=== PATIENT | female | born 1985 | race Hispanic/Latino ===

== ENCOUNTER 2016-07-12 12:30 | Emergency (ER) | payer MEDICAID ==
[2016-07-12 12:31] VITALS: BMI 30.4
[2016-07-12 12:47] VITALS: TEMP 98.2
--- NOTE | 2016-07-12 14:00 | RAD ---
HISTORY: R/O TB COMPARISON: 12/28/2015 TECHNIQUE: Chest PA and lateral FINDINGS: LUNGS: No active pulmonary disease. PLEURA: No significant pleural effusion identified. No pneumothorax apparent. CARDIOVASCULAR: Normal. OSSEOUS STRUCTURES: No significant abnormalities. VISUALIZED UPPER ABDOMEN: Normal. OTHER FINDINGS: None. IMPRESSION: No active disease.
[2016-07-12] MEDS ORDERED: Sodium Chloride 0.9% 1,000 ML IV ONE (14:27)
[2016-07-12] MEDS ORDERED: Albuterol-Ipratrop 3 mg / 0.5 (3 ml) UD IH STA ×2 (14:29→15:30)
[2016-07-12] MEDS ORDERED: Albuterol-Ipratrop 3 mg / 0.5 (3 ml) UD ONE (14:39)
[2016-07-12] MEDS ORDERED: Sodium Chloride 0.9% 1,000 ML ONE (14:39)
[2016-07-12 14:58] LABS: BASO # 0.1 K/uL (0.0-0.2); BASO % 0.7 % (0.0-2.0); EOS # 0.1 K/uL (0.0-0.7); EOS % 0.8 % (0.0-4.0); HEMATOCRIT 35.7 % (34.0-47.0); LYMPH # 3.3 K/uL (1.0-4.3); LYMPH % 46.8 % (20.0-40.0); MEAN CELL VOLUME 80.2 fL (81.0-99.0); MEAN CORPUSCULAR HEMOGLOBIN 25.3 pg (27.0-31.0); MEAN CORPUSCULAR HGB CONC 31.6 g/dL (33.0-37.0); MEAN PLATELET VOLUME 8.9 fL (7.2-11.7); MONO # 0.4 K/uL (0.0-0.8); RED CELL DISTRIBUTION WIDTH 16.3 % (11.5-14.5)
[2016-07-12 15:04] LABS: RBC URINE 1 /hpf (0-3); URINE BACTERIA RARE (<OCC); URINE BILIRUBIN NEGATIVE (NEGATIVE); URINE BLOOD NEGATIVE (NEGATIVE); URINE COLOR Yellow (YELLOW); URINE GLUCOSE (UA) NORMAL (Normal); URINE KETONE NEGATIVE (NEGATIVE); URINE LEUKOCYTE ESTERASE NEG Leu/uL (Negative); URINE PROTEIN NEGATIVE (NEGATIVE); URINE UROBILINOGEN NORMAL mg/dL (0.2-1.0); WBC URINE 1 /hpf (0-5)
[2016-07-12 15:09] LABS: CHLORIDE 102 mmol/L (98-107)
[2016-07-12 15:10] LABS: POTASSIUM 3.9 mmol/L (3.6-5.2); SODIUM 138 mmol/L (132-148)
[2016-07-12 15:12] LABS: ALB/GLOB RATIO 1.4 (1.0-2.1); AST/SGOT 16 U/L (14-36); BILIRUBIN,TOTAL 0.2 mg/dL (0.2-1.3); BLOOD UREA NITROGEN 14 mg/dL (7-17); CARBON DIOXIDE 26 mmol/L (22-30); GFR AFRICAN-AMERICAN > 60; TOTAL PROTEIN 6.7 g/dL (6.3-8.3)
[2016-07-12 15:13] LABS: ALKALINE PHOSPHATASE 44 U/L (38-126); ALT/SGPT 18 U/L (9-52); CALCIUM 8.7 mg/dl (8.6-10.4); GLUCOSE,RANDOM 79 mg/dL (65-105)
[2016-07-12 16:11] VITALS: RESP 20
--- NOTE | 2016-07-12 16:34 | CT ---
PROCEDURE: CT HEAD WITHOUT CONTRAST. HISTORY: Headaches COMPARISON: None available. TECHNIQUE: Axial computed tomography images were obtained through the head/brain without intravenous contrast. Radiation dose: Total exam DLP = 715.93 mGy-cm. This CT exam was performed using one or more of the following dose reduction techniques: Automated exposure control, adjustment of the mA and/or kV according to patient size, and/or use of iterative reconstruction technique. FINDINGS: HEMORRHAGE: No intracranial hemorrhage. BRAIN: No mass effect or edema. No atrophy or chronic microvascular ischemic changes. VENTRICLES: Unremarkable. No hydrocephalus. CALVARIUM: Unremarkable. PARANASAL SINUSES: Unremarkable as visualized. No significant inflammatory changes. MASTOID AIR CELLS: Unremarkable as visualized. No inflammatory changes. OTHER FINDINGS: None. IMPRESSION: Normal CT of the Head. No intracranial mass, hemorrhage or evidence of acute infarct.
--- NOTE | 2016-07-12 16:57 | C.PDOC ---
Time Seen by Provider: 07/12/16 14:19 Chief Complaint (Nursing): Flu-like Symptoms History Per: Patient Onset/Duration Of Symptoms: Days (about 1 week) Current Symptoms Are (Timing): Still Present Associated Symptoms: Sore Throat, Cough, Sputum, Nasal Congestion, Nausea, Vomiting Severity: Moderate Additional History Per: Prior Records Past Medical History Reviewed: Historical Data, Nursing Documentation, Vital Signs Vital Signs: Last Vital Signs Temp 98.2 F 07/12/16 12:46 Pulse 74 07/12/16 16:11 Resp 20 07/12/16 16:11 BP 110/72 07/12/16 16:11 Pulse Ox 98 07/12/16 16:11 - Medical History PMH: Anemia, Anxiety, Asthma (never hospitalized), Bipolar Disorder, Depression , Gall Bladder Disease, Post Traumatic Stress Disorder Surgical History: Cholecystectomy (6 years ago) - [facility] Procedures BUNIONECT/SFT/OSTEOTOMY (11/30/13) INJECT STEROID (04/09/14) LIMB LENGTHENING PROCEDURES, TARSALS & METATARSALS (04/09/14) OTH BUNIONECT W SFT FLY (04/09/14) REPAIR OF HAMMER TOE (11/30/13) Family History: States: Unknown Family Hx - Social History Hx Tobacco Use: Yes Hx Alcohol Use: No Hx Substance Use: Yes - Immunization History Hx Tetanus Toxoid Vaccination: No Hx Influenza Vaccination: No Hx Pneumococcal Vaccination: No Review Of Systems Except As Marked, All Systems Reviewed And Found Negative. Constitutional: Positive for: Malaise ENT: Positive for: Nose Congestion, Throat Pain Cardiovascular: Negative for: Chest Pain Respiratory: Positive for: Cough, Shortness of Breath, Wheezing Gastrointestinal: Negative for: Abdominal Pain Musculoskeletal: Negative for: Neck Pain, Back Pain Skin: Negative for: Rash Neurological: Positive for: Headache. Negative for: Weakness, Numbness, Seizures, Altered Mental Status Physical Exam - Physical Exam Appears: Non-toxic, No Acute Distress Skin: Normal Color, Warm, Dry, No Rash Head: Atraumatic, Normacephalic Eye(s): bilateral: PERRL, EOMI Ear(s): Bilateral: Normal Throat: Erythema, No Exudate, No Drooling, No Mass Neck: Normal ROM, Supple Cardiovascular: Rhythm Regular Respiratory: No Accessory Muscle Use, Wheezing Gastrointestinal/Abdominal: Soft, No Tenderness Back: No CVA Tenderness Extremity: Normal ROM Neurological/Psych: Oriented x3, Normal Motor, Normal Sensation ED Course And Treatment - Laboratory Results Result Diagrams: 07/12/16 14:52 07/12/16 14:52 Lab Interpretation: No Acute Changes Urine POC: Negative O2 Sat by Pulse Oximetry: 98 Pulse Ox Interpretation: Normal - Radiology CXR: Viewed By Me, Read By Radiologist CXR Interpretation: Yes: No Acute Disease - CT Scan/US CT head Other Rad Studies (CT/US): Read By Radiologist, Radiology Report Reviewed CT/US Interpretation: IMPRESSION: Normal CT of the Head. No intracranial mass , hemorrhage or evidence of acute infarct. Progress Note: Pt feels much better and wants to go home. Lungs clear. Reassessment Condition: Improved Progress - Interventions Interventions:: Observation, Intravenous fluid - Medications Administered Inhaled nebulized: Anticholinergic, Beta-2 agonist Intravenous: Corticosteroid, NSAID - Data Reviewed Data Reviewed: Lab, Diagnostic imaging, Old records - Patient Status Patient status: Mostly improved - Critical Care Citical Care: Excluding Proc Time Critical Care Time: 45 minutes - Continuity of Care Discussed patient case with:: Patient, ED Nurse - Patient Plan Patient Plan: Discharge, F/U with PCP, Continue present meds Disposition Counseled Patient/Family Regarding: Studies Performed, Diagnosis, Need For Followup, Rx Given, Smoking Cessation - Disposition Referrals: Kayce Gomez MD [Staff Provider] - Disposition: HOME/ ROUTINE Disposition Time: 17:00 Condition: IMPROVED Additional Instructions: Drink plenty of fluids. Follow up with your doctor. Return to the ER if you develop fever, not tolerating fluids, worsening of symptoms or if you have any other concerns. Prescriptions: Albuterol HFA [Ventolin HFA 90 mcg/actuation (8 g)] 2 puff IH Q4 PRN #1 unit PRN Reason: Wheezing Azithromycin [Zithromax] 1 dose PO DAILY #1 pkt predniSONE [predniSONE Tab] 40 mg PO DAILY #10 tab Instructions: Acute Bronchitis (ED) Print Language: NIGERIEN - Clinical Impression Clinical Impression: Influenza-like illness, Asthma exacerbation, Bronchitis
[2016-07-12 17:25] VITALS: BP 119/84; PULSE 63; O2SAT 99
== END 2016-07-12 17:45 | disposition home or self-care (01) ==
LOC: C.ER 12:30
DX: J11.1 Influenza due to unidentified influenza virus with other respiratory manifestations (principal); J45.901 Unspecified asthma with (acute) exacerbation
CPT/HCPCS: 70450; 71020; 80053; 81001; 84703; 85025; 87804; 94640; 96361; 96374; 96375; 99284; J1885; J2405; J2930; J7040

== ENCOUNTER 2016-07-23 18:57 | Emergency (ER) | payer MEDICAID ==
[2016-07-23 19:00] VITALS: BMI 32.5
--- NOTE | 2016-07-23 20:36 | C.PDOC ---
History Of Present Illness Patient presents to the ED with complaints of a severe migraine headache, nausea , and mild photophobia beginning a couple hours prior to arrival. Patient notes migraines of this severity are usual, symptoms similiar to previous migraines, and had a CT scan on 07/12/2016. Patient denies any other complaints at this time. Time Seen by Provider: 07/23/16 19:29 Chief Complaint (Nursing): Headache History Per: Patient History/Exam Limitations: no limitations Onset/Duration Of Symptoms: Hrs Current Symptoms Are (Timing): Still Present Severity: Moderate Pain Scale Rating Of: 5 Quality: Tightness, "Pain" Preceeding Symptoms: None Associated Symptoms: Photophobia (mild) Recent travel outside of the [place]: No Additional History Per: Patient Past Medical History Reviewed: Historical Data, Nursing Documentation, Vital Signs Vital Signs: Last Vital Signs Temp 97.5 F L 07/23/16 19:01 Pulse 60 07/23/16 20:55 Resp 18 07/23/16 20:55 BP 132/78 07/23/16 20:55 Pulse Ox 100 07/23/16 21:05 - Medical History PMH: Anemia, Anxiety, Asthma (never hospitalized), Bipolar Disorder, Depression , Gall Bladder Disease, Post Traumatic Stress Disorder Surgical History: Cholecystectomy (6 years ago) - [facility] Procedures BUNIONECT/SFT/OSTEOTOMY (11/30/13) INJECT STEROID (04/09/14) LIMB LENGTHENING PROCEDURES, TARSALS & METATARSALS (04/09/14) OTH BUNIONECT W SFT FLY (04/09/14) REPAIR OF HAMMER TOE (11/30/13) Family History: States: Unknown Family Hx - Social History Hx Tobacco Use: Yes Hx Alcohol Use: No Hx Substance Use: Yes - Immunization History Hx Tetanus Toxoid Vaccination: No Hx Influenza Vaccination: No Hx Pneumococcal Vaccination: No Review Of Systems Constitutional: Negative for: Fever, Chills, Sweats Eyes: Positive for: Pain. Negative for: Redness ENT: Negative for: Throat Pain Cardiovascular: Negative for: Chest Pain Respiratory: Negative for: Shortness of Breath Gastrointestinal: Positive for: Nausea. Negative for: Vomiting, Abdominal Pain , Diarrhea Genitourinary: Negative for: Dysuria Musculoskeletal: Negative for: Neck Pain Skin: Negative for: Rash, Lesions, Jaundice Neurological: Positive for: Headache. Negative for: Weakness Psych: Negative for: Anxiety Physical Exam - Physical Exam Appears: Non-toxic Skin: Warm, Dry Head: Atraumatic Eye(s): bilateral: Normal Inspection, PERRL, EOMI Oral Mucosa: Moist Neck: Supple Chest: Symmetrical Cardiovascular: Rhythm Regular Respiratory: No Accessory Muscle Use, No Rales, No Rhonchi, No Stridor Gastrointestinal/Abdominal: Soft, No Tenderness, No Distention, No Guarding, No Rebound Back: Normal Inspection Extremity: Normal ROM, No Tenderness Extremity: Bilateral: Atraumatic, Normal Color And Temperature Neurological/Psych: Oriented x3, Normal Speech, Normal Cognition, Normal Motor Gait: Steady ED Course And Treatment O2 Sat by Pulse Oximetry: 100 Pulse Ox Interpretation: Normal Reevaluation Time: 22:20 Reassessment Condition: Improved Medical Decision Making Medical Decision Making: Upon provider reevaluation patient is feeling better, is medically stable, and requires no further treatment in the ED at this time. Patient will be discharged home with zofran. Counseling was provided and all questions were answered regarding diagnosis and need for follow up with gautam. There is agreement to discharge plan. Return if symptoms persist or worsen. Disposition Counseled Patient/Family Regarding: Studies Performed, Diagnosis - Disposition Referrals: Kayce Gomez MD [Staff Provider] - Disposition: HOME/ ROUTINE Disposition Time: 20:36 Condition: FAIR Prescriptions: Ondansetron ODT [Zofran ODT] 1 odt PO BID PRN #10 odt PRN Reason: Nausea/Vomiting Instructions: Acute Headache (DC) - Clinical Impression Clinical Impression: Migraine - Scribe Statement The provider has reviewed the documentation as recorded by the Scribjon Santana All medical record entries made by the Luis Danielibjon were at my direction and personally dictated by me. I have reviewed the chart and agree that the record accurately reflects my personal performance of the history, physical exam, medical decision making, and the department course for this patient. I have also personally directed, reviewed, and agree with the discharge instructions and disposition.
[2016-07-23] MEDS ORDERED: DiphenhydrAMINE 50 mg/ml Inj IVP STA (20:39)
[2016-07-23] MEDS ORDERED: DiphenhydrAMINE 50 mg/ml Inj ONE (20:47)
[2016-07-23 22:41] VITALS: BP 122/71; PULSE 80; RESP 16; TEMP 97.6; O2SAT 99
== END 2016-07-23 22:40 | disposition home or self-care (01) ==
LOC: C.ER 18:57
DX: G43.909 Migraine, unspecified, not intractable, without status migrainosus (principal)
CPT/HCPCS: 96374; 96375; 99285; J1170; J1200; J2405; J2930

== ENCOUNTER 2016-09-11 11:00 | Emergency (ER) | payer MEDICAID ==
[2016-09-11 11:01] VITALS: BMI 32.5
--- NOTE | 2016-09-11 11:20 | C.PDOC ---
History Of Present Illness 31 yr old female presents to the ER stating while asleep this morning she fell of the bed and hit her right collar bone and right side of neck on the night stand. Now complains of pain to right collar bone and right neck. Denies LOC, vision changes, nausea, vomiting, dizziness, headache, weakness or numbness. 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) Past Medical History Reviewed: Historical Data, Nursing Documentation, Vital Signs Vital Signs: Last Vital Signs Temp 98.4 F 09/11/16 12:27 Pulse 82 09/11/16 12:27 Resp 18 09/11/16 12:27 BP 109/71 09/11/16 12:27 Pulse Ox 100 09/11/16 12:27 - Medical History PMH: Anemia, Anxiety, Asthma (never hospitalized), Bipolar Disorder, Depression , Gall Bladder Disease, Post Traumatic Stress Disorder Surgical History: Cholecystectomy (6 years ago) - [facility] Procedures BUNIONECT/SFT/OSTEOTOMY (11/30/13) INJECT STEROID (04/09/14) LIMB LENGTHENING PROCEDURES, TARSALS & METATARSALS (04/09/14) OTH BUNIONECT W SFT FLY (04/09/14) REPAIR OF HAMMER TOE (11/30/13) Family History: States: No Known Family Hx - Social History Hx Tobacco Use: Yes Hx Alcohol Use: No Hx Substance Use: Yes - Immunization History Hx Tetanus Toxoid Vaccination: No Hx Influenza Vaccination: No Hx Pneumococcal Vaccination: No Review Of Systems Except As Marked, All Systems Reviewed And Found Negative. Eyes: Negative for: Vision Change Gastrointestinal: Negative for: Nausea, Vomiting Musculoskeletal: Positive for: Neck Pain (Right neck pain ), Other ((+) Right collar bone pain ) Neurological: Negative for: Weakness, Numbness, Headache, Dizziness Physical Exam - Physical Exam Appears: Well, Non-toxic, No Acute Distress Skin: Warm, Dry, No Rash Head: Atraumatic, Normacephalic Eye(s): bilateral: Normal Inspection, PERRL, EOMI Oral Mucosa: Moist Neck: Paracervical Tenderness (Right ), Supple, Other ((+) Tenderness to the mid right clavical. Pain with lateral movement of neck, right to left. ) Chest: Symmetrical, No Tenderness Cardiovascular: Rhythm Regular, No Murmur Respiratory: Normal Breath Sounds, No Rales, No Rhonchi, No Stridor, No Wheezing Gastrointestinal/Abdominal: Soft, No Tenderness Back: Normal Inspection, No CVA Tenderness, No Vertebral Tenderness, No Paraspinal Tenderness Extremity: Normal ROM, No Tenderness, No Swelling Neurological/Psych: Oriented x3, Normal Speech, Normal Motor, Normal Sensation Gait: Steady Medical Decision Making Medical Decision Making: PLAN: * X-Ray - Cervical Spine, Clavicle Right * Flexeril PO * Tylenol PO xray are negative for fractures. Soft collar was placed by ED nurse Disposition - Disposition Referrals: [facility] [Outside] Disposition: HOME/ ROUTINE Disposition Time: 11:59 Condition: GOOD Additional Instructions: Follow up with the medical doctor within 1-2 days. Return if worsened. 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 - Scribe Statement The provider has reviewed the documentation as recorded by the Scribe Bruna Cantu All medical record entries made by the Scribjon were at my direction and personally dictated by me. I have reviewed the chart and agree that the record accurately reflects my personal performance of the history, physical exam, medical decision making, and the department course for this patient. I have also personally directed, reviewed, and agree with the discharge instructions and disposition.
[2016-09-11 11:21] VITALS: BP 109/71; PULSE 82; TEMP 98.4
[2016-09-11 12:28] VITALS: RESP 18; O2SAT 100
--- NOTE | 2016-09-11 12:54 | RAD ---
Cervical spine three views History: Neck pain. Injury. Comparison: None available. Findings: Cervical spine visualized from C1 through C7. No prevertebral soft tissue swelling. No evidence for acute displaced fracture. Dens is intact. Impression: Negative acute. If pain persists, consider MRI.
--- NOTE | 2016-09-11 12:56 | RAD ---
Right clavicle two views History: Injury. Comparison: None available. Findings: No evidence for acute displaced fracture or dislocation. Impression: Negative acute. If pain persists, consider MRI.
== END 2016-09-11 12:27 | disposition home or self-care (01) ==
LOC: C.ER 11:00
DX: S16.1XXA Strain of muscle, fascia and tendon at neck level, initial encounter (principal); W06.XXXA Fall from bed, initial encounter; Y93.89 Activity, other specified; Y92.003 Bedroom of unspecified non-institutional (private) residence as the place of occurrence of the external cause

== ENCOUNTER 2016-11-23 13:12 | Emergency (ER) | payer MEDICAID ==
[2016-11-23 13:13] VITALS: BMI 31.8
[2016-11-23 13:31] VITALS: TEMP 98.4
[2016-11-23] MEDS ORDERED: Sodium Chloride 0.9% 1,000 ML IV ONE (14:13)
[2016-11-23] MEDS ORDERED: Sodium Chloride 0.9% 1,000 ML ONE (14:42)
[2016-11-23 14:47] LABS: LYMPH # 2.6 K/uL (1.0-4.3); MONO # 0.5 K/uL (0.0-0.8)
[2016-11-23 14:55] LABS: RBC URINE 183 /hpf (0-3); URINE BACTERIA RARE (<OCC); URINE BILIRUBIN NEGATIVE (NEGATIVE); URINE BLOOD 3+ (NEGATIVE); URINE COLOR Amber (YELLOW); URINE GLUCOSE (UA) NORMAL (Normal); URINE KETONE TRACE mg/dL (NEGATIVE); URINE LEUKOCYTE ESTERASE NEG Leu/uL (Negative); URINE PROTEIN 1+ mg/dL (NEGATIVE); URINE UROBILINOGEN NORMAL mg/dL (0.2-1.0); WBC URINE 2 /hpf (0-5)
[2016-11-23 15:02] LABS: BASO % 0.6 % (0.0-2.0); EOS % 0.6 % (0.0-4.0); HEMATOCRIT 36.9 % (34.0-47.0); LYMPH % 40.1 % (20.0-40.0); MEAN CORPUSCULAR HGB CONC 33.8 g/dL (33.0-37.0); MEAN PLATELET VOLUME 9.2 fL (7.2-11.7); MONO % 7.1 % (0.0-10.0); RED CELL DISTRIBUTION WIDTH 14.2 % (11.5-14.5); WHITE BLOOD COUNT 6.5 K/uL (4.8-10.8)
[2016-11-23 15:07] LABS: MEAN CELL VOLUME 82.8 fL (81.0-99.0)
[2016-11-23 15:31] LABS: CHLORIDE 104 mmol/L (98-107); SODIUM 139 mmol/L (132-148)
[2016-11-23 15:34] LABS: ALB/GLOB RATIO 1.3 (1.0-2.1); ALKALINE PHOSPHATASE 59 U/L (38-126); AST/SGOT 17 U/L (14-36); BILIRUBIN,TOTAL 0.6 mg/dL (0.2-1.3); BLOOD UREA NITROGEN 16 mg/dL (7-17); CARBON DIOXIDE 20 mmol/L (22-30); GFR AFRICAN-AMERICAN > 60; GLUCOSE,RANDOM 75 mg/dL (65-105); TOTAL PROTEIN 7.2 g/dL (6.3-8.3)
[2016-11-23 15:35] LABS: ALT/SGPT 23 U/L (9-52)
--- NOTE | 2016-11-23 15:57 | US ---
Indication: Vaginal bleeding Technique: Transvaginal pelvic ultrasound Comparison: None available. Findings: The uterus measures approximately 8.8 x 4.3 x 4.6 cm. Limited visualization of the endometrial stripe measures approximately 7 mm. No evidence of intrauterine gestational sac. The right ovary measures 2.7 x 1.8 x 2.3 cm and contains 9 x 12 mm probable follicle/cyst. The left ovary measures 2.8 x 1.9 x 2.1 cm and appears unremarkable. Blood flow is noted to both ovaries. No significant pelvic free fluid identified. Impression: Limited visualization of the endometrial stripe measures approximately 7 mm in diameter. No evidence of intrauterine gestational sac. Correlate with beta HCG. 9 x 12 mm right ovarian follicle/cyst.
--- NOTE | 2016-11-23 16:06 | C.PDOC ---
History Of Present Illness 31 yr old female with , LMP 09/18, presents to the ER with complaints of vaginal spotting since morning. Patient states she was seen by her OB yesterday , who did a US which did not a IUP. Currently, patient is pain free. Denies fever, chills, chest pain, nausea, vomiting, weakness or numbness. Time Seen by Provider: 11/23/16 14:10 Chief Complaint (Nursing): Female Genitourinary History Per: Patient History/Exam Limitations: no limitations Onset/Duration Of Symptoms: Sudden Onset (Since morning) Past Medical History Reviewed: Historical Data, Nursing Documentation, Vital Signs Vital Signs: Last Vital Signs Temp 98.4 F 11/23/16 13:27 Pulse 85 11/23/16 16:34 Resp 16 11/23/16 16:34 BP 121/80 11/23/16 16:34 Pulse Ox 98 11/23/16 16:34 - Medical History PMH: Anemia, Anxiety, Asthma, Bipolar Disorder, Depression, Gall Bladder Disease , Post Traumatic Stress Disorder Surgical History: Cholecystectomy - [facility] Procedures BUNIONECT/SFT/OSTEOTOMY (11/30/13) INJECT STEROID (04/09/14) LIMB LENGTHENING PROCEDURES, TARSALS & METATARSALS (04/09/14) OTH BUNIONECT W SFT FLY (04/09/14) OTHER PLASTIC OPS TENDON (05/31/14) REPAIR OF HAMMER TOE (11/30/13) Family History: States: No Known Family Hx - Social History Hx Tobacco Use: Yes Hx Alcohol Use: No Hx Substance Use: Yes - Immunization History Hx Tetanus Toxoid Vaccination: No Hx Influenza Vaccination: No Hx Pneumococcal Vaccination: No Review Of Systems Except As Marked, All Systems Reviewed And Found Negative. Constitutional: Negative for: Fever, Chills Cardiovascular: Negative for: Chest Pain Gastrointestinal: Negative for: Nausea, Vomiting Genitourinary: Positive for: Other ((+) Vaginal spotting) Neurological: Negative for: Weakness, Numbness Physical Exam - Physical Exam Appears: Well, Non-toxic, No Acute Distress Skin: Normal Color, Warm, Dry, No Rash Head: Atraumatic, Normacephalic Eye(s): bilateral: Normal Inspection, PERRL, EOMI Oral Mucosa: Moist Chest: Symmetrical, No Tenderness Cardiovascular: Rhythm Regular, No Murmur Respiratory: Normal Breath Sounds, No Rales, No Rhonchi, No Stridor, No Wheezing Gastrointestinal/Abdominal: Normal Exam, Soft, No Tenderness, No Guarding, No Rebound Extremity: Normal ROM, No Swelling Neurological/Psych: Oriented x3, Normal Speech, Normal Motor ED Course And Treatment - Laboratory Results Result Diagrams: 11/23/16 14:44 11/23/16 14:13 O2 Sat by Pulse Oximetry: 100 (RA) Pulse Ox Interpretation: Normal - CT Scan/US US - Transvaginal Other Rad Studies (CT/US): Read By Radiologist, Radiology Report Reviewed CT/US Interpretation: Indication: Vaginal bleeding. Technique: Transvaginal pelvic ultrasound. Comparison: None available. Findings: The uterus measures approximately 8.8 x 4.3 x 4.6 cm. Limited visualization of the endometrial stripe measures approximately 7 mm. No evidence of intrauterine gestational sac. The right ovary measures 2.7 x 1.8 x 2.3 cm and contains 9 x 12 mm probable follicle/cyst. The left ovary measures 2.8 x 1.9 x 2.1 cm and appears unremarkable. Blood flow is noted to both ovaries. No significant pelvic free fluid identified. Impression: Limited visualization of the endometrial stripe measures approximately 7 mm in diameter. No evidence of intrauterine gestational sac. Correlate with beta HCG. 9 x 12 mm right ovarian follicle/ cyst. Medical Decision Making Medical Decision Making: PLAN: * US - Transvaginal * CBC * CMP * BETA * Urinalysis * Sodium Chloride IV Disposition - Disposition Referrals: [facility] Tisha Zuniga, [Non-Staff] - Disposition: HOME/ ROUTINE Disposition Time: 16:00 Condition: GOOD Additional Instructions: Thank you for letting us take care of you today. Your provider was Dr. Ponce. You were treated for vaginal bleeding. The emergency medical care you received today was directed at your acute symptoms. If you were prescribed any medication, please fill it and take as directed. It may take several days for your symptoms to resolve. Return to the Emergency Department if your symptoms worsen, do not improve, or if you have any other problems. Please contact your doctor or call one of the physicians/clinics you have been referred to that are listed on the Patient Visit Information form that is included in your discharge packet. Bring any paperwork you were given at discharge with you along with any medications you are taking to your follow up visit. Our treatment cannot replace ongoing medical care by a primary care provider (PCP) outside of the emergency department. Thank you for allowing the [facility] team to be part of your care today. Follow up with your OB doctor in 1-2 days for re-evaluation. Forms: [employer] (German) - Clinical Impression Clinical Impression: Vaginal bleeding - Scribe Statement The provider has reviewed the documentation as recorded by the Scribe Bruna Cantu Provider Attestation: All medical record entries made by the Luis Danielibjon were at my direction and personally dictated by me. I have reviewed the chart and agree that the record accurately reflects my personal performance of the history, physical exam, medical decision making, and the department course for this patient. I have also personally directed, reviewed, and agree with the discharge instructions and disposition.
[2016-11-23 16:35] VITALS: BP 121/80; PULSE 85; RESP 16
[2016-11-23 18:28] VITALS: O2SAT 100
== END 2016-11-23 16:34 | disposition home or self-care (01) ==
LOC: C.ER 13:12
DX: N93.9 Abnormal uterine and vaginal bleeding, unspecified (principal)
CPT/HCPCS: 76830; 80053; 81001; 84702; 84703; 85025; 86850; 86900; 96360; 99284; J7040

== ENCOUNTER 2017-02-23 17:22 | Emergency (ER) | payer MEDICAID ==
[2017-02-23 17:22] VITALS: BMI 31.8
[2017-02-23 17:35] VITALS: RESP 18; O2SAT 100
--- NOTE | 2017-02-23 17:53 | C.PDOC ---
History Of Present Illness <WrightJoseZackary R - Last Filed: 02/24/17 00:52> <Ramon Holt - Last Filed: 02/26/17 09:38> 32F c/o productive cough, nausea, vomiting, and diarrhea. she reports cough since earlier this month- I saw her 02/07 and she eloped at that time but she says "it was taking too long." she says her cough is no better. she also c/o vomiting and watery diarrhea multiple episodes per day for the last 3 days. she still smokes "8 cigarettes per day." she also reports "yellow fingernails." ( Ramon Holt) <Jose Wrightel R - Last Filed: 02/24/17 00:52> <Ramon Holt - Last Filed: 02/26/17 09:38> Time Seen by Provider: 02/23/17 17:44 Chief Complaint (Nursing): Abdominal Pain Past Medical History - Medical History PMH: Anemia, Anxiety, Asthma, Bipolar Disorder, Bronchitis, Depression, Gall Bladder Disease, Post Traumatic Stress Disorder Denies: Chronic Kidney Disease, Sexually Transmitted Disease Surgical History: Cholecystectomy Family History: States: Other Other Family History: nc - Social History Hx Tobacco Use: Yes Hx Alcohol Use: Yes Hx Substance Use: Yes - Immunization History Hx Tetanus Toxoid Vaccination: No Hx Influenza Vaccination: No Hx Pneumococcal Vaccination: No <Ramon Holt - Last Filed: 02/26/17 09:38> Vital Signs: Last Vital Signs Temp 97.6 F 02/23/17 20:06 Pulse 77 02/23/17 20:06 Resp 18 02/23/17 20:06 BP 97/51 L 02/23/17 20:06 Pulse Ox 100 02/23/17 20:06 - [facility] Procedures BUNIONECT/SFT/OSTEOTOMY (11/30/13) INJECT STEROID (04/09/14) LIMB LENGTHENING PROCEDURES, TARSALS & METATARSALS (04/09/14) OTH BUNIONECT W SFT FLY (04/09/14) OTHER PLASTIC OPS TENDON (05/31/14) REPAIR OF HAMMER TOE (11/30/13) Review Of Systems Constitutional: Positive for: Sweats, Malaise. Negative for: Fever Cardiovascular: Negative for: Chest Pain Respiratory: Positive for: Cough, Sputum, Wheezing. Negative for: Hemoptysis Gastrointestinal: Positive for: Nausea, Vomiting, Diarrhea <Ramon Holt P - Last Filed: 02/26/17 09:38> Physical Exam - Physical Exam Appears: Well, Non-toxic, No Acute Distress Skin: Warm, Dry Head: Atraumatic Eye(s): bilateral: PERRL Nose: No Epistaxis Oral Mucosa: Moist Neck: Supple Cardiovascular: Rhythm Regular Respiratory: No Decreased Breath Sounds, No Accessory Muscle Use, No Rales, No Rhonchi, No Stridor, Wheezing Gastrointestinal/Abdominal: Soft, No Tenderness, No Distention, No Guarding, No Rebound Extremity: No Swelling Pulses: Left Radial: Normal, Right Radial: Normal Neurological/Psych: Oriented x3, Other (no focal deficits) <Ramon Holt P - Last Filed: 02/26/17 09:38> ED Course And Treatment - Laboratory Results Result Diagrams: 02/23/17 18:25 02/23/17 18:25 Pulse Ox Interpretation: Normal - Radiology CXR: Interpreted by Me, Viewed By Me CXR Interpretation: Yes: No Acute Disease. No: Infiltrates <Zackary Wright R - Last Filed: 02/24/17 00:52> - Laboratory Results Result Diagrams: 02/23/17 18:25 02/23/17 18:25 O2 Sat by Pulse Oximetry: 100 <Ramon Holt P - Last Filed: 02/26/17 09:38> Disposition Counseled Patient/Family Regarding: Diagnosis - Disposition Disposition Time: 19:04 - POA Present On Arrival: None <Zackary Wright R - Last Filed: 02/24/17 00:52> <Ramon Holt P - Last Filed: 02/26/17 09:38> - Disposition Referrals: [facility] [Outside] Disposition: HOME/ ROUTINE Condition: GOOD Prescriptions: Albuterol/Ipratropium [Duoneb 3 MG/3 Ml-0.5 MG/3 Ml 3 Ml] 3 ml IH Q6 #20 neb Levofloxacin [Levaquin] 750 mg PO DAILY #5 tablet Methylprednisolone [Medrol Dose Pack (21 tabs)] 4 mg PO DAILY #21 mg Instructions: Upper Respiratory Infection (ED), Enteritis (ED) Forms: General Discharge Instructions, [facility] (Angolan) - Clinical Impression Clinical Impression: Upper respiratory infection, Asthma, Enteritis Physician Patient Turnover Patient Signed Over To: Zackary Wright Handoff Comments: pending wrkup and re-eval <Ramon Holt - Last Filed: 02/26/17 09:38>
[2017-02-23] MEDS ORDERED: Sodium Chloride 0.9% 1,000 ML IV ONE (18:02)
[2017-02-23] MEDS ORDERED: Promethazine 12.5 mg/10 ml Syrup PO STA (18:03)
[2017-02-23] MEDS ORDERED: Albuterol-Ipratrop 3 mg / 0.5 (3 ml) UD IH STA (18:03)
[2017-02-23] MEDS ORDERED: Sodium Chloride 0.9% 1,000 ML ONE (18:15)
[2017-02-23 18:31] LABS: BASO # 0.1 K/uL (0.0-0.2); BASO % 0.9 % (0.0-2.0); EOS % 0.6 % (0.0-4.0); HEMATOCRIT 36.3 % (34.0-47.0); LYMPH # 3.2 K/uL (1.0-4.3); MEAN CELL VOLUME 83.7 fL (81.0-99.0); MEAN CORPUSCULAR HEMOGLOBIN 27.1 pg (27.0-31.0); MEAN CORPUSCULAR HGB CONC 32.4 g/dL (33.0-37.0); MEAN PLATELET VOLUME 9.1 fL (7.2-11.7); MONO # 0.4 K/uL (0.0-0.8); MONO % 4.7 % (0.0-10.0); NRBC % 0.1 % (0.0-2.0); RED CELL DISTRIBUTION WIDTH 14.5 % (11.5-14.5); WHITE BLOOD COUNT 7.5 K/uL (4.8-10.8)
[2017-02-23] MEDS ORDERED: Albuterol-Ipratrop 3 mg / 0.5 (3 ml) UD ONE ×2 (18:39→19:28)
[2017-02-23 18:43] LABS: ALB/GLOB RATIO 1.7 (1.0-2.1); ALKALINE PHOSPHATASE 40 U/L (38-126); ALT/SGPT 30 U/L (9-52); AST/SGOT 19 U/L (14-36); BILIRUBIN,TOTAL 0.9 mg/dL (0.2-1.3); BLOOD UREA NITROGEN 13 mg/dL (7-17); CALCIUM 8.6 mg/dl (8.6-10.4); CARBON DIOXIDE 24 mmol/L (22-30); CHLORIDE 101 mmol/L (98-107); GFR AFRICAN-AMERICAN > 60; GLUCOSE,RANDOM 71 mg/dL (65-105); POTASSIUM 3.6 mmol/L (3.6-5.2); SODIUM 135 mmol/L (132-148)
[2017-02-23] MEDS ORDERED: Albuterol-Ipratrop 3 mg / 0.5 (3 ml) UD INH STA (19:10)
[2017-02-23 20:09] VITALS: BP 97/51; PULSE 77; TEMP 97.6
--- NOTE | 2017-02-24 08:57 | RAD ---
HISTORY: cough COMPARISON: Comparison is made to 07/12/2016 TECHNIQUE: Chest PA and lateral FINDINGS: LUNGS: No active pulmonary disease. PLEURA: No significant pleural effusion identified. No pneumothorax apparent. CARDIOVASCULAR: Normal. OSSEOUS STRUCTURES: No significant abnormalities. VISUALIZED UPPER ABDOMEN: Normal. OTHER FINDINGS: None. IMPRESSION: No radiographic evidence of pneumonia. No significant interval change noted since the previous exam
== END 2017-02-23 20:00 | disposition home or self-care (01) ==
LOC: C.ER 17:22
DX: J06.9 Acute upper respiratory infection, unspecified (principal); J45.909 Unspecified asthma, uncomplicated; K52.9 Noninfective gastroenteritis and colitis, unspecified; Z72.0 Tobacco use
CPT/HCPCS: 71020; 80053; 85025; 87804; 94150; 96361; 96374; 96375; 99284; J1885; J2405; J2930; J7040

== ENCOUNTER 2017-03-23 08:28 | Emergency (ER) | payer MEDICAID ==
[2017-03-23 08:28] VITALS: BMI 31.8
[2017-03-23 08:41] VITALS: RESP 18
[2017-03-23] MEDS ORDERED: Belladonna-Phenobarbital PO STA (09:15)
[2017-03-23] MEDS ORDERED: Sodium Chloride 0.9% 1,000 ML IV ONE (09:15)
[2017-03-23] MEDS ORDERED: Aluminum Hydroxide/Magnesium Hydroxide Susp (30 mL) PO STA (09:15)
--- NOTE | 2017-03-23 09:15 | C.PDOC ---
History Of Present Illness 32 year old female with PMHx of anemia, asthma, PTSD, anxiety, bipolar comes to the ED for evaluation of vomit, abdominal pain, and headache. Patient reports for the past 4 days she has vomited 4 times along with stomach pain, she states she is not able to eat or drink anything. Patient reports also a headache that gradually worsened while watching TV, states she has had similar symptoms in the past but has not gone to see a neurologist. Patient reports she is not taking any medication for her bipolar disorder she usually smokes marijuana for it, she states she applied for her medical marijuana license and was approved and is still waiting to get her card. Patient is a daily smoker but has not smoked for the past 4 days due to her pain. Patient denies fever, chills, back pain, dysruia, hematuria. Time Seen by Provider: 03/23/17 09:03 Chief Complaint (Nursing): GI Problem History Per: Patient History/Exam Limitations: no limitations Onset/Duration Of Symptoms: Days Current Symptoms Are (Timing): Still Present Severity: Mild Location Of Pain/Discomfort: Epigastric Radiation Of Pain To:: None Quality Of Discomfort: "Pain" Associated Symptoms: Vomiting, Loss Of Appetite Exacerbating Factors: Food Alleviating Factors: None Recent travel outside of the [place]: No Additional History Per: Patient Abnormal Vaginal Bleeding: No Past Medical History Reviewed: Historical Data, Nursing Documentation, Vital Signs Vital Signs: Last Vital Signs Temp 98.0 F 03/23/17 08:39 Pulse 74 03/23/17 08:39 Resp 18 03/23/17 08:39 BP 96/55 L 03/23/17 08:39 Pulse Ox 97 03/23/17 09:28 - Medical History PMH: Anemia, Anxiety, Asthma, Bipolar Disorder, Bronchitis, Depression, Gall Bladder Disease, Post Traumatic Stress Disorder Denies: Chronic Kidney Disease, Sexually Transmitted Disease Surgical History: Cholecystectomy - [facility] Procedures BUNIONECT/SFT/OSTEOTOMY (11/30/13) INJECT STEROID (04/09/14) LIMB LENGTHENING PROCEDURES, TARSALS & METATARSALS (04/09/14) OTH BUNIONECT W SFT FLY (04/09/14) OTHER PLASTIC OPS TENDON (05/31/14) REPAIR OF HAMMER TOE (11/30/13) Family History: States: Unknown Family Hx - Social History Hx Tobacco Use: Yes Hx Alcohol Use: Yes Hx Substance Use: Yes - Immunization History Hx Tetanus Toxoid Vaccination: No Hx Influenza Vaccination: No Hx Pneumococcal Vaccination: No Review Of Systems Constitutional: Negative for: Fever, Chills Cardiovascular: Negative for: Chest Pain Respiratory: Negative for: Cough, Shortness of Breath Gastrointestinal: Positive for: Vomiting, Abdominal Pain Genitourinary: Negative for: Dysuria, Hematuria Musculoskeletal: Negative for: Back Pain Skin: Negative for: Rash Neurological: Positive for: Headache. Negative for: Weakness, Numbness Physical Exam - Physical Exam Appears: Non-toxic, No Acute Distress Skin: Normal Color, Warm, Dry Head: Atraumatic, Normacephalic Nose: No Discharge, No Deformity Oral Mucosa: Moist Neck: Normal ROM, Supple Chest: Symmetrical Cardiovascular: Rhythm Regular, No Murmur Respiratory: Normal Breath Sounds, No Rales, No Rhonchi, No Wheezing Gastrointestinal/Abdominal: Soft, No Tenderness, No Distention, No Rebound Extremity: Normal ROM, No Calf Tenderness, No Deformity, No Swelling Neurological/Psych: Oriented x3, Normal Speech, Normal Cognition Gait: Steady ED Course And Treatment - Laboratory Results Result Diagrams: 03/23/17 09:30 03/23/17 09:30 O2 Sat by Pulse Oximetry: 97 (On RA) Pulse Ox Interpretation: Normal Medical Decision Making Medical Decision Making: Impression : 32 y/o female with vomit X4, abdominal pain and gradually worsening headache. Plan: * Blood work * UA * Zofran 4 mg IVP * Toradol 30 mg IVP * IV fluids * Pepcid 20 mg IVP * Maalox 30 ml PO * 1 tab PO Disposition Counseled Patient/Family Regarding: Studies Performed, Diagnosis, Need For Followup, Rx Given - Disposition Disposition: HOME/ ROUTINE Disposition Time: 12:32 Condition: STABLE Prescriptions: Ibuprofen [Motrin] 600 mg PO TID #15 tab Instructions: Acute Headache (ED) Forms: [facility] (Prydeinig), General Discharge Instructions, Work Excuse - POA Present On Arrival: None - Clinical Impression Clinical Impression: Migraine, Vomiting - Scribe Statement The provider has reviewed the documentation as recorded by the Scribe Atilio Rivas All medical record entries made by the Scribe were at my direction and personally dictated by me. I have reviewed the chart and agree that the record accurately reflects my personal performance of the history, physical exam, medical decision making, and the department course for this patient. I have also personally directed, reviewed, and agree with the discharge instructions and disposition.
[2017-03-23] MEDS ORDERED: Sodium Chloride 0.9% 1,000 ML ONE (09:25)
[2017-03-23] MEDS ORDERED: Aluminum Hydroxide/Magnesium Hydroxide Susp (30 mL) ONE (09:26)
[2017-03-23] MEDS ORDERED: Belladonna-Phenobarbital ONE (09:26)
[2017-03-23 09:38] LABS: BASO % 0.6 % (0.0-2.0); EOS # 0.1 K/uL (0.0-0.7); EOS % 0.8 % (0.0-4.0); HEMATOCRIT 32.8 % (34.0-47.0); LYMPH # 2.2 K/uL (1.0-4.3); LYMPH % 35.6 % (20.0-40.0); MEAN CELL VOLUME 82.8 fL (81.0-99.0); MEAN CORPUSCULAR HEMOGLOBIN 28.2 pg (27.0-31.0); MEAN PLATELET VOLUME 8.8 fL (7.2-11.7); MONO # 0.5 K/uL (0.0-0.8); MONO % 8.1 % (0.0-10.0); RED CELL DISTRIBUTION WIDTH 14.8 % (11.5-14.5); WHITE BLOOD COUNT 6.1 K/uL (4.8-10.8)
[2017-03-23 09:49] LABS: RBC URINE 6 /hpf (0-3); URINE BACTERIA RARE (<OCC); URINE BILIRUBIN NEGATIVE (NEGATIVE); URINE BLOOD NEGATIVE (NEGATIVE); URINE COLOR Amber (YELLOW); URINE GLUCOSE (UA) NORMAL (Normal); URINE KETONE TRACE mg/dL (NEGATIVE); URINE LEUKOCYTE ESTERASE 1+ Leu/uL (Negative); URINE PROTEIN 1+ mg/dL (NEGATIVE); WBC URINE 10 /hpf (0-5)
[2017-03-23 09:51] LABS: ALB/GLOB RATIO 1.7 (1.0-2.1); ALKALINE PHOSPHATASE 47 U/L (38-126); ALT/SGPT 21 U/L (9-52); AST/SGOT 24 U/L (14-36); BILIRUBIN,TOTAL 0.7 mg/dL (0.2-1.3); BLOOD UREA NITROGEN 16 mg/dL (7-17); CALCIUM 8.9 mg/dl (8.6-10.4); CARBON DIOXIDE 25 mmol/L (22-30); CHLORIDE 102 mmol/L (98-107); GFR AFRICAN-AMERICAN > 60; GLUCOSE,RANDOM 89 mg/dL (65-105); POTASSIUM 3.5 mmol/L (3.6-5.2); SODIUM 137 mmol/L (132-148); TOTAL PROTEIN 6.6 g/dL (6.3-8.3)
[2017-03-23 12:37] VITALS: BP 104/66; PULSE 78; TEMP 98.2
[2017-03-24 16:47] VITALS: O2SAT 97
== END 2017-03-23 12:47 | disposition home or self-care (01) ==
LOC: C.ER 08:28
DX: G43.909 Migraine, unspecified, not intractable, without status migrainosus (principal); R11.10 Vomiting, unspecified
CPT/HCPCS: 80053; 80324; 80345; 80346; 80349; 80353; 80358; 80361; 81001; 83690; 83992; 84703; 85025; 96361; 96374; 96375; 99285; J1885; J2405; J7040

== ENCOUNTER 2017-04-11 11:24 | Emergency (ER) | payer MEDICAID ==
[2017-04-11 11:25] VITALS: BMI 31.8
[2017-04-11 11:57] VITALS: RESP 18; TEMP 98.3
--- NOTE | 2017-04-11 12:21 | C.PDOC ---
History Of Present Illness 32 year old female presents to the ED for evaluation of sore throat, fever and vomiting which began 2 days ago. Patient was recently seen in this ED and underwent lab work. Patient states she now has sore throat and vomiting and presents for further evaluation. She denies ear pain, cough, diarrhea. Time Seen by Provider: 04/11/17 12:10 Chief Complaint (Nursing): Abdominal Pain History Per: Patient History/Exam Limitations: no limitations Onset/Duration Of Symptoms: Days (2) Current Symptoms Are (Timing): Still Present Associated Symptoms: Fever, Vomiting Exacerbating Factors: denies: Cough Additional History Per: Patient Abnormal Vaginal Bleeding: No Past Medical History Reviewed: Historical Data, Nursing Documentation, Vital Signs Vital Signs: Last Vital Signs Temp 98.3 F 04/11/17 11:55 Pulse 60 04/11/17 13:07 Resp 18 04/11/17 13:07 BP 103/69 04/11/17 13:07 Pulse Ox 99 04/11/17 13:07 - Medical History PMH: Anemia, Anxiety, Asthma, Bipolar Disorder, Bronchitis, Depression, Gall Bladder Disease, Post Traumatic Stress Disorder Denies: Chronic Kidney Disease, Sexually Transmitted Disease Surgical History: Cholecystectomy - [facility] Procedures BUNIONECT/SFT/OSTEOTOMY (11/30/13) INJECT STEROID (04/09/14) LIMB LENGTHENING PROCEDURES, TARSALS & METATARSALS (04/09/14) OTH BUNIONECT W SFT FLY (04/09/14) OTHER PLASTIC OPS TENDON (05/31/14) REPAIR OF HAMMER TOE (11/30/13) Family History: States: Unknown Family Hx - Social History Hx Tobacco Use: Yes Hx Alcohol Use: Yes Hx Substance Use: Yes - Immunization History Hx Tetanus Toxoid Vaccination: No Hx Influenza Vaccination: No Hx Pneumococcal Vaccination: No Review Of Systems Constitutional: Positive for: Fever ENT: Positive for: Throat Pain. Negative for: Ear Pain Respiratory: Negative for: Cough Gastrointestinal: Positive for: Vomiting. Negative for: Diarrhea Physical Exam - Physical Exam Appears: Non-toxic, No Acute Distress Skin: Normal Color, Warm, Dry Head: Atraumatic, Normacephalic Eye(s): bilateral: Normal Inspection Ear(s): Bilateral: Normal Nose: Normal, No Discharge Oral Mucosa: Moist Throat: Erythema, Exudate Neck: Supple Chest: Symmetrical, No Deformity, No Tenderness Cardiovascular: Rhythm Regular, No Murmur Respiratory: Normal Breath Sounds, No Rales, No Rhonchi, No Wheezing Gastrointestinal/Abdominal: Soft, Tenderness (mild, epigastric ), No Guarding, No Rebound Extremity: Normal ROM, Capillary Refill (less than 2 seconds ) Neurological/Psych: Oriented x3, Normal Speech, Normal Cognition Gait: Steady ED Course And Treatment O2 Sat by Pulse Oximetry: 98 (on RA) Pulse Ox Interpretation: Normal Medical Decision Making Medical Decision Making: Progress: Patient denies labwork at this time. CXR, Influenza A/B and Rapid Strep swabs ordered. Tylenol PO administered. Patient continues to decline lab work at this time. Will treat empirically for strep. Disposition - Disposition Referrals: [facility] [Outside] [facility] [Outside] Disposition: HOME/ ROUTINE Disposition Time: 12:57 Condition: STABLE Additional Instructions: please follow up with your doctor. return to er with worsening symptoms or concerns. you are declining lab work. you are able to return at any point with any concern. Prescriptions: Amoxicillin [Amoxil 500 mg Cap] 500 mg PO TID #21 cap Instructions: Pharyngitis (ED), Acute Nausea and Vomiting (ED) Forms: [facility] (Saudi Arabian) - Clinical Impression Clinical Impression: Pharyngitis - Scribe Statement The provider has reviewed the documentation as recorded by the Scribe (Louisa Cash) Provider Attestation: All medical record entries made by the Scribe were at my direction and personally dictated by me. I have reviewed the chart and agree that the record accurately reflects my personal performance of the history, physical exam, medical decision making, and the department course for this patient. I have also personally directed, reviewed, and agree with the discharge instructions and disposition.
--- NOTE | 2017-04-11 12:48 | RAD ---
HISTORY: cough COMPARISON: X-ray performed 02/23/17 TECHNIQUE: Chest PA and lateral FINDINGS: LUNGS: No focal consolidation. Please note that chest x-ray has limited sensitivity for the detection of pulmonary masses. PLEURA: No significant pleural effusion identified. No definite pneumothorax . CARDIOVASCULAR: The cardiomediastinal silhouette appears within normal limits of size. OSSEOUS STRUCTURES: No acute osseous abnormality identified. VISUALIZED UPPER ABDOMEN: Unremarkable. OTHER FINDINGS: None. IMPRESSION: No focal consolidation, significant pleural effusion, or definite pneumothorax identified.
[2017-04-11 12:55] LABS: INFLUENZA A B NEGATIVE FOR FLU A/B (NEGATIVE)
[2017-04-11 13:08] VITALS: BP 103/69; PULSE 60
[2017-04-11 14:29] VITALS: O2SAT 98
== END 2017-04-11 13:50 | disposition home or self-care (01) ==
LOC: C.ER 11:24
DX: J02.9 Acute pharyngitis, unspecified (principal); F17.210 Nicotine dependence, cigarettes, uncomplicated

== ENCOUNTER 2017-06-30 11:45 | Emergency (ER) | payer MEDICAID ==
[2017-06-30] MEDS ORDERED: Sodium Chloride 0.9% 1,000 ML IV ONE (12:45)
[2017-06-30 12:55] VITALS: BMI 28.3
[2017-06-30 13:18] LABS: BASO % 0.4 % (0.0-2.0); EOS % 0.2 % (0.0-4.0); HEMOGLOBIN 10.2 g/dL (11.0-16.0); LYMPH # 2.5 K/uL (1.0-4.3); LYMPH % 20.8 % (20.0-40.0); MEAN CELL VOLUME 81.8 fL (81.0-99.0); MEAN CORPUSCULAR HEMOGLOBIN 26.8 pg (27.0-31.0); MEAN CORPUSCULAR HGB CONC 32.8 g/dL (33.0-37.0); MEAN PLATELET VOLUME 8.7 fL (7.2-11.7); MONO # 0.6 K/uL (0.0-0.8); MONO % 5.3 % (0.0-10.0); NEUT # 8.9 K/uL (1.8-7.0); NEUT % 73.3 % (50.0-75.0); RBC 3.81 Mil/uL (3.80-5.20); RED CELL DISTRIBUTION WIDTH 16.2 % (11.5-14.5)
[2017-06-30 13:21] LABS: WHITE BLOOD COUNT 12.1 K/uL (4.8-10.8)
[2017-06-30 13:30] LABS: HCG,QUALITATIVE URINE POSITIVE (NEGATIVE)
[2017-06-30 13:32] LABS: SQUAMOUS EPITHIAL 17 /hpf (0-5); URINE AMORPHOUS SEDIMENT RARE /ul (<OCC); URINE BILIRUBIN NEGATIVE (NEGATIVE); URINE BLOOD NEGATIVE (NEGATIVE); URINE CLARITY Hazy (Clear); URINE COLOR Yellow (YELLOW); URINE GLUCOSE (UA) NORMAL (Normal); URINE LEUKOCYTE ESTERASE NEG Leu/uL (Negative); URINE PROTEIN NEGATIVE (NEGATIVE); URINE UROBILINOGEN NORMAL mg/dL (0.2-1.0)
[2017-06-30 13:34] LABS: ALB/GLOB RATIO 1.2 (1.0-2.1); ALBUMIN 3.6 g/dL (3.5-5.0); ALT/SGPT 14 U/L (9-52); AST/SGOT 17 U/L (14-36); BLOOD UREA NITROGEN 8 mg/dL (7-17); GFR AFRICAN-AMERICAN > 60; GFR NON-AFRICAN AMERICAN > 60; LIPASE 46 U/L (23-300)
[2017-06-30] MEDS ORDERED: Sodium Chloride 0.9% 1,000 ML ONE (13:35)
--- NOTE | 2017-06-30 13:55 | C.PDOC ---
History Of Present Illness 32 y/o female currently presents to ED with complaints of low abdominal pain and vaginal spotting for 2 days with associated nausea and vomiting. Patient states she had a scheduled appointment with OBGYN tomorrow but symptoms worsen which prompted visit to ED today. Patient denies fever, chills, dysuria, vaginal discharge or any other complaints at this time. Time Seen by Provider: 06/30/17 12:19 Chief Complaint (Nursing): Abdominal Pain History Per: Patient History/Exam Limitations: no limitations Onset/Duration Of Symptoms: Days Current Symptoms Are (Timing): Still Present Location Of Pain/Discomfort: LLQ Past Medical History Reviewed: Historical Data, Nursing Documentation, Vital Signs Vital Signs: Last Vital Signs Temp 98.0 F 06/30/17 15:38 Pulse 78 06/30/17 15:38 Resp 18 06/30/17 15:38 BP 116/70 06/30/17 15:38 Pulse Ox 99 07/03/17 21:43 - Medical History PMH: Anemia, Anxiety, Asthma, Bipolar Disorder, Bronchitis, Depression, Gall Bladder Disease, Post Traumatic Stress Disorder Surgical History: Cholecystectomy - [facility] Procedures BUNIONECT/SFT/OSTEOTOMY (11/30/13) INJECT STEROID (04/09/14) LIMB LENGTHENING PROCEDURES, TARSALS & METATARSALS (04/09/14) OTH BUNIONECT W SFT FLY (04/09/14) OTHER PLASTIC OPS TENDON (05/31/14) REPAIR OF HAMMER TOE (11/30/13) Family History: States: No Known Family Hx - Social History Hx Tobacco Use: Yes Hx Alcohol Use: Yes Hx Substance Use: Yes - Immunization History Hx Tetanus Toxoid Vaccination: No Hx Influenza Vaccination: No Hx Pneumococcal Vaccination: No Review Of Systems Constitutional: Negative for: Fever, Chills Gastrointestinal: Positive for: Nausea, Vomiting, Abdominal Pain Genitourinary: Positive for: Vaginal Bleeding. Negative for: Dysuria, Vaginal Discharge Physical Exam - Physical Exam Appears: Non-toxic, No Acute Distress Skin: Warm, Dry, No Rash Head: Atraumatic, Normacephalic Oral Mucosa: Moist Neck: Normal ROM, Supple Cardiovascular: Rhythm Regular Respiratory: Normal Breath Sounds, No Rales, No Rhonchi, No Wheezing Gastrointestinal/Abdominal: Bowel Sounds, Soft, Tenderness (LLQ), No Guarding, No Rebound Back: No CVA Tenderness Extremity: Normal ROM, Capillary Refill (<2 seconds) Neurological/Psych: Oriented x3, Normal Speech ED Course And Treatment - Laboratory Results Result Diagrams: 06/30/17 13:10 06/30/17 13:10 O2 Sat by Pulse Oximetry: 99 (RA) Pulse Ox Interpretation: Normal Progress Note: OB US, IV fluids ordered Medical Decision Making Medical Decision Making: pt well appearing. abdomen, non tender, eating sandiwich and drinking soda , no ab pain or vomiting at this time. 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 given sono report to give to her doctor. advised to discuss rx for antibemetics with her public finance specialist. d/c home. pelvic rest advised. . Disposition Counseled Patient/Family Regarding: Studies Performed, Diagnosis, Need For Followup, Rx Given - Disposition Disposition: HOME/ ROUTINE Disposition Time: 15:27 Condition: IMPROVED Additional Instructions: Please continue to eat in small amounts at one time, several times a day. Crackers good for nausea. Follow up with your twisting department end finder tomorrow as scheduled; bring ultrasound reports with you to appointment. Instructions: Morning Sickness (DC), Threatened Miscarriage (DC) Forms: General Discharge Instructions, [facility] (Mongolian), Gym Excuse - Clinical Impression Clinical Impression: Threatened , Nausea/vomiting in - PA / BOILER WELDER / Resident Statement MD/DO has reviewed & agrees with the documentation as recorded. - Scribe Statement The provider has reviewed the documentation as recorded by the Luis Danielibjon Macias All medical record entries made by the Annel were at my direction and personally dictated by me. I have reviewed the chart and agree that the record accurately reflects my personal performance of the history, physical exam, medical decision making, and the department course for this patient. I have also personally directed, reviewed, and agree with the discharge instructions and disposition.
--- NOTE | 2017-06-30 15:08 | US ---
Pelvic ultrasound History: . Spotting. Pain. Comparison: None available. Technique: Real-time sonography was performed through the pelvis. Findings: Intrauterine noted. Mean ultrasound age of approximately 13 weeks and 3 days. heart rate of 142 beats per minute. Biparietal diameter measures 2.2 centimeters corresponding to a gestational age of 13 weeks 4 days. Head circumference measures 8.2 centimeters corresponding to a gestational age 13 weeks 4 days. Abdominal circumference measures 6.8 centimeters corresponding to a gestational age of 13 weeks 3 days. Femur length measures 1.0 centimeters corresponding to a gestational age of 13 weeks 0 days. Low-lying anterior placenta noted. Cervix measures 4.4 centimeters in length. No free fluid in the pelvic cul-de-sac. Impression: Limited pelvic ultrasound for viability purposes only. Please note this was not a dedicated anatomic survey. Dedicated interval anatomic survey is recommended at an interval date. Clinical correlation. Intrauterine corresponding to a mean ultrasound age of approximately 13 weeks 3 days with heart rate of 143 beats per minute. Low lying anterior placenta. Clinical correlation. Limited 1st trimester ultrasound for viability purposes only. Continued interval followup with serial ultrasound, serial HCG levels, and gynecological consultation would be helpful if clinically indicated.
[2017-06-30 15:39] VITALS: BP 116/70; PULSE 78; RESP 18; TEMP 98
[2017-07-03 21:43] VITALS: O2SAT 99
== END 2017-06-30 15:47 | disposition home or self-care (01) ==
LOC: C.ER 11:45
DX: O20.0 Threatened abortion (principal); O21.9 Vomiting of pregnancy, unspecified; Z3A.13 13 weeks gestation of pregnancy
CPT/HCPCS: 36415; 76815; 80053; 81001; 83690; 84703; 85025; 86850; 86900; 87086; 96361; 96374; 99285; J7040

== ENCOUNTER 2017-10-29 17:11 | Emergency (ER) | payer MEDICAID ==
[2017-10-29 18:17] LABS: SQUAMOUS EPITHIAL 4 /hpf (0-5); URINE AMORPHOUS SEDIMENT RARE /ul (<OCC); URINE BACTERIA RARE (<OCC); URINE BILIRUBIN NEGATIVE (NEGATIVE); URINE BLOOD NEGATIVE (NEGATIVE); URINE CLARITY Hazy (Clear); URINE COLOR Yellow (YELLOW); URINE GLUCOSE (UA) NORMAL (Normal); URINE LEUKOCYTE ESTERASE NEG Leu/uL (Negative); URINE PROTEIN NEGATIVE (NEGATIVE); URINE UROBILINOGEN NORMAL mg/dL (0.2-1.0)
[2017-10-29 18:22] LABS: BARBITURATES, UR NEGATIVE (NEGATIVE); BENZODIAZEPINES, UR NEGATIVE (NEGATIVE); OPIATES, UR NEGATIVE (NEGATIVE); PHENCYCLIDINE, UR NEGATIVE (NEGATIVE)
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
[2017-10-29 22:48] VITALS: BP 120/75; PULSE 82; RESP 18; TEMP 98
== END 2017-10-29 18:10 | disposition left against medical advice (07) ==
LOC: C.EROB 17:11
DX: O26.893 Other specified pregnancy related conditions, third trimester (principal); Z3A.31 31 weeks gestation of pregnancy